=== PATIENT | female | born 1990 | race Caucasian/White ===

== ENCOUNTER → 2016-12-31 | Outpatient (CLI) | payer BC | END | disposition home or self-care (01) | LOC: C.PAPS 17:45 | PROVIDERS: ATTEND Physician Assistant | DX: Z01.419 Encounter for gynecological examination (general) (routine) without abnormal findings (principal) ==

== ENCOUNTER 2020-05-13 07:36 | Inpatient (IN) ==
[2020-05-13] MEDS ORDERED: OXYTOCIN 30 UNITS/500 ML BAG IV PRN ×2 (07:48→07:52)
[2020-05-13 08:12] LABS: Hemoglobin 11.2 g/dL (12.0-16.0); Mean Corpuscular Hemoglobin 29.2 pg (25-34); Mean Corpuscular Volume 85.9 fL (80-100); Mean Platelet Volume 9.7 fL (7.4-10.4); Platelet Count 190 K/uL (130-400); RDW Coefficient of Variation 13.6 % (11.5-14.5); RDW Standard Deviation 42.2 fL (36.4-46.3); Red Blood Count 3.84 M/uL (4.2-5.4); White Blood Count 10.13 K/uL (4.8-10.8)
[2020-05-13 08:13] LABS: Mean Corpuscular Hgb Conc 33.9 g/dL (32-36)
--- NOTE | 2020-05-13 08:14 | History & Physical Report ---
Date of Service May 13, 2020 Assessment & Plan (1) Encounter for induction of labor: Nara is a 29 y/o female currently at 41-2/7 WGA with an CARLENE 05/04/20 as determined by US #1 who is here for induction of labor in the setting of post-dates. Her has been uncomplicated. - Will proceed with induction of labor -- begin Pitocin augmentation protocol - Expect - Patient not requesting epidural at this time, but has been counselled that she can request this while here prior to delivery Blood Type: A+ GBS: negative Rubella: immune History of Present Illness Primary Care Provider: Selwyn Nash DO Nara is a 29 y/o female currently at 41-2/7 WGA with an CARLENE 05/04/20 as determined by US #1 who is here for induction of labor in the setting of post-dates. Her has been uncomplicated. Denies contractions; good movement; no fluid loss; no bloody show External FHT and external uterine monitors used; Category I tracing; +FHT variability. Had regular appointments with OB. Labs: (09/24/19) Blood type: A+ Antibody screen: neg H.2 Hct: 35.4 WBC: 7.2 Plt: 191 Rubella: immune VDRL/RPR: NR Gonorrhea: neg Chlamydia: neg HIV: neg HbSAg: neg GBS: neg Allergies Allergy/AdvReac Type Severity Reaction Status Date / Time Penicillins Allergy Hives Verified 05/13/20 08:41 Home Medications Home Medications Medication Instructions Recorded Confirmed Type prenat.vits,africa,ydo-mflq-sngjd 1 tab PO DAILY 09/23/19 05/13/20 History Patient History Social History (Updated 09/23/19 @ 13:11 by Ankita Omalley) Smoking Status: Never smoker Hx Alcohol Use: No Hx Substance Use: No Preferred Language: [place] Citizen Communication Ability: Effective Beliefs That Will Affect Care: None marital status: marital status details: Prem Blairyenni (33) [phone] Current Living Situation: Spouse Current Living Situation Comment: lives with spouse, no pets current occupational status: employed 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 No acute distress. Cardiac: Regular rate and rhythm, no murmurs/rubs/gallops. Respiratory: Clear to auscultation bilaterally a/p, no wheezes/rales/rhonchi. No increased work of breathing. Symmetrical chest rise. No respiratory distress. Pelvic: Dilation 1.5 cm; Effacement 70%; Station -[address] Banegas Lower Extremities: No lower extremity edema or swelling. No deep calf pain. Gabriel's negative bilaterally Results & Data Vital Signs (Past 12 Hours) Vital Signs Pulse BP 05/13/20 07:48 86 120/71 Code Status & VTE Plan VTE Prophylaxis Plan VTE Prophylaxis will be ordered: No Supervising Physician Co-Signing Physician Notes Resident Physician Supervision Note: I interviewed and examined the patient. Discussed with Dr. Barrera and agree with findings and plan as documented in the note. Any exceptions or clarifications are listed here: with iup at 41+ who presents for postdates induction. uncomplicated. gbs negative. cx--1-2/70/-2, fetus category one. toco--irregular. Plan pitocin induction and then arom. epidural on request. anticipate . Documented By: Ning Banegas MD, FACOG Resident Activity Tracking Resident Involvement: Resident Care Provided Care Provided: Adult Hospital Medicine and OB Delivery
[2020-05-13] MEDS: LACTATED RINGER'S 1,000 ML IV PRN ×3 (09:04→18:54)
--- NOTE | 2020-05-13 13:06 | Labor Progress Brief Note ---
Date of Service May 13, 2020 Subjective patient noting some contractions Assessment & Plan (1) Encounter for induction of labor: Admission and Anticipated Discharge Date Admission Date: May 13, 2020 arom--clear, continue pitocin, fetus category one. anticipate . Physical Exam Constitutional: WD/WN, vitals as above Psychiatric: A+Ox3, euthymic affect Genitourinary: cx--3/75/-2 arom--slight clear toco--q3-5min efm--120s mod variability, accels to 160s, no decels Results & Data ([facility]) Vital Signs (Past 12 Hours) Vital Signs Temp Pulse Resp BP 05/13/20 12:10 75 114/71 05/13/20 11:07 36.5 C 73 20 110/70 05/13/20 10:07 77 117/65 05/13/20 09:07 83 127/70 05/13/20 08:25 36.5 C 20 05/13/20 07:48 86 120/71 Coding Level of Care Code None Diagnoses Encounter for induction of labor Z34.90
[2020-05-13] MEDS ORDERED: BUTORPHANOL TARTRATE 1 MG/ML VIAL IV ONE (16:47)
[2020-05-13] MEDS ORDERED: BUTORPHANOL TARTRATE 1 MG/ML VIAL ONE (16:49)
--- NOTE | 2020-05-13 16:49 | Labor Progress Brief Note ---
Date of Service May 13, 2020 Subjective Patient getting uncomfortable with contractions Assessment & Plan (1) Encounter for induction of labor: discussed pain management options. Patient desires trial of stadol. fetus category one. continue current management. Admission and Anticipated Discharge Date Admission Date: May 13, 2020 Physical Exam Constitutional: WD/WN, vitals as above Psychiatric: A+Ox3, euthymic affect Genitourinary: cx--3-4/100/-1 toco--q2min, pit at 19 efm--120s with mod variability, small accels, no decels Results & Data ([facility]) Vital Signs (Past 12 Hours) Vital Signs Temp Pulse Resp BP 05/13/20 16:40 78 121/72 05/13/20 15:13 72 133/78 05/13/20 14:29 36.4 C L 67 20 121/78 05/13/20 13:04 36.6 C 75 20 129/80 05/13/20 12:10 75 114/71 05/13/20 11:07 36.5 C 73 20 110/70 05/13/20 10:07 77 117/65 05/13/20 09:07 83 127/70 05/13/20 08:25 36.5 C 20 05/13/20 07:48 86 120/71 Coding Level of Care Code None Diagnoses Encounter for induction of labor Z34.90
[2020-05-13] MEDS ORDERED: BUPIVACAINE 0.25% 30 ML VIAL ONE (17:53)
[2020-05-13] MEDS ORDERED: fentaNYL citrate 100 MCG/2 ML VIAL ONE (17:53)
[2020-05-13] MEDS ORDERED: ePHEDrine sulfate 50 MG/ML AMP ONE (17:53)
[2020-05-13] MEDS ORDERED: fentaNYL 2MCG/ML ROPIV 1.25MG/ML 100 ML BAG EPI ONE (17:54)
[2020-05-13] MEDS ORDERED: NALOXONE HCL 1 MG in SODIUM CHLORIDE 0.9% 1000ML 1,000 ML IV PRN (18:13)
[2020-05-13] MEDS ORDERED: DiphenhydrAMINE HCL 50 MG/ML VIAL IV PRN (18:13)
[2020-05-13] MEDS ORDERED: fentaNYL 2MCG/ML ROPIV 1.25MG/ML 100 ML BAG EPI PRN (18:13)
[2020-05-13] MEDS ORDERED: ePHEDrine sulfate 50 MG/ML AMP IV PRN (18:13)
[2020-05-13] MEDS ORDERED: NALOXONE HCL 0.4 MG/1 ML VIAL/CARP IV PRN (18:13)
[2020-05-13] MEDS ORDERED: ONDANSETRON INJ 2 MG/ML 2 ML VIAL IV PRN (18:13)
--- NOTE | 2020-05-13 18:17 | Anesthesiology Consultation ---
Date of Service May 13, 2020 Assessment & Plan (1) Encounter for pre-operative examination: Chart Review Chart Review: Patient NOT seen in Pre Admission Testing and Acceptable Risk for Labor Epidural Consults Requested none History Height/Weight Height: 5 ft 8 in Weight: 80.739 kg Allergies Allergy/AdvReac Type Severity Reaction Status Date / Time Penicillins Allergy Hives Verified 05/13/20 08:41 Medications Home Medications Medication Instructions Recorded Confirmed Last Taken prenat.vits,africa,emx-imit-ksqyk 1 tab PO DAILY 09/23/19 05/13/20 05/13/20 07:00 Active Medications Generic Name Dose Route Start Last Admin Trade Name Freq PRN Reason Stop Dose Admin Lactated Ringer's 1,000 mls @ 125 mls/hr 05/13/20 07:48 05/13/20 17:50 Lr IV 05/15/20 07:47 999 mls/hr .Q8H PRN Infusion L&D Protocol Protocol Oxytocin 30 units in 500 mls @ 9 mls/hr 05/13/20 07:52 05/13/20 18:00 Pitocin IV 05/15/20 07:51 0.54 units/hr .Q24H PRN 9 mls/hr Labor Induction/Augmentation Titration Protocol 0.54 UNITS/HR Past Medical History Medical History History of chicken pox Exercise / Class Metabolic Activity II 4-5 Yardwork/Stairs/Walk up hill Past Family History Family History Grandmother (Paternal) Breast cancer Past Surgical History Surgical History History of lingual frenotomy Past Anesthesia History No Hx of Anesthesia Complications and No Family Hx of Anesthesia Complications History of PONV No Hx of PONV and No Hx of Motion Sickness Social History Smoking Status: Never smoker Do You Dip or Chew Tobacco: No Hx Alcohol Use: No Hx Substance Use: No Physical Exam Vital Signs Last Vital Signs Temp 36.6 C 05/13/20 17:00 Pulse 80 05/13/20 18:40 Resp 24 05/13/20 17:00 BP 129/75 05/13/20 18:37 Pulse Ox 100 05/13/20 18:40 Testing Laboratory Results 05/13/20 07:58
--- NOTE | 2020-05-13 20:14 | Labor Progress Brief Note ---
Date of Service May 13, 2020 Subjective comfortable with epidural Assessment & Plan (1) Encounter for induction of labor: Admission and Anticipated Discharge Date Admission Date: May 13, 2020 Continue current management. fetus category one with early with contractions. allow to labor down. anticipate . Physical Exam Constitutional: WD/WN, vitals as above Psychiatric: A+Ox3, euthymic affect Genitourinary: cx--rim/c/0 toco--q2-4min, pit at 9 efm--120s with mod variability, early with contractions Results & Data ([facility]) Vital Signs (Past 12 Hours) Vital Signs Temp Pulse Resp BP Pulse Ox 05/13/20 20:10 90 100 05/13/20 20:05 81 118/76 100 05/13/20 20:00 92 H 100 05/13/20 19:55 99 H 100 05/13/20 19:50 36.5 C 85 18 100 05/13/20 19:45 79 100 05/13/20 19:44 82 122/77 05/13/20 19:40 81 100 05/13/20 19:38 88 89 L 05/13/20 19:35 36.5 C 83 20 100 05/13/20 19:33 87 92 05/13/20 19:30 102 H 106/67 100 05/13/20 19:25 85 100 05/13/20 19:24 71 124/71 05/13/20 19:20 84 99 05/13/20 19:18 82 110/63 05/13/20 19:15 82 100 05/13/20 19:14 73 107/58 L 05/13/20 19:10 71 100 05/13/20 19:05 79 99 05/13/20 19:00 83 100 05/13/20 18:57 75 172/69 H 05/13/20 18:55 77 100 05/13/20 18:54 82 125/73 05/13/20 18:52 75 123/70 05/13/20 18:50 75 120/62 100 05/13/20 18:49 74 137/60 05/13/20 18:46 79 119/63 05/13/20 18:45 71 124/65 100 05/13/20 18:42 66 125/67 05/13/20 18:40 80 100 05/13/20 18:37 74 129/75 05/13/20 18:35 86 100 05/13/20 18:34 74 137/78 05/13/20 18:31 73 136/77 05/13/20 18:30 87 100 05/13/20 18:25 76 100 05/13/20 18:20 69 100 05/13/20 18:15 75 100 05/13/20 18:10 76 99 05/13/20 18:05 74 98 05/13/20 17:59 69 134/61 05/13/20 17:39 71 127/85 05/13/20 17:00 36.6 C 24 05/13/20 16:40 78 121/72 05/13/20 15:13 72 133/78 05/13/20 14:29 36.4 C L 67 20 121/78 05/13/20 13:04 36.6 C 75 20 129/80 05/13/20 12:10 75 114/71 05/13/20 11:07 36.5 C 73 20 110/70 05/13/20 10:07 77 117/65 05/13/20 09:07 83 127/70 05/13/20 08:25 36.5 C 20 Coding Level of Care Code None Diagnoses Encounter for induction of labor Z34.90
--- NOTE | 2020-05-13 22:40 | Labor Progress Brief Note ---
Date of Service May 13, 2020 Subjective Pushing with excellent effort Assessment & Plan (1) Encounter for induction of labor: Admission and Anticipated Discharge Date Admission Date: May 13, 2020 good progress, fetus tolerating pushing. anticipate . Physical Exam Constitutional: WD/WN, vitals as above Psychiatric: A+Ox3, euthymic affect Genitourinary: c/c/+2 with push toco--q2-4min, pit at 10 efm--150s wtih mod variability, variables with pushing. Results & Data ([facility]) Vital Signs (Past 12 Hours) Vital Signs Temp Pulse Resp BP Pulse Ox 05/13/20 22:35 109 H 95 05/13/20 22:33 109 H 118/65 05/13/20 22:31 111 H 94 05/13/20 22:30 111 H 96 05/13/20 22:25 128 H 96 05/13/20 22:20 121 H 96 05/13/20 22:18 100 H 121/61 05/13/20 22:15 115 H 96 05/13/20 22:10 136 H 97 05/13/20 22:05 133 H 97 05/13/20 22:03 110 H 117/62 05/13/20 22:00 122 H 97 05/13/20 21:55 134 H 98 05/13/20 21:50 104 H 95 05/13/20 21:49 76 128/72 05/13/20 21:45 96 H 99 05/13/20 21:40 102 H 100 05/13/20 21:35 98 H 100 05/13/20 21:33 94 H 109/66 05/13/20 21:30 92 H 97 05/13/20 21:25 90 98 05/13/20 21:20 90 98 05/13/20 21:19 81 108/71 05/13/20 21:15 83 97 05/13/20 21:10 91 H 96 05/13/20 21:05 80 117/72 99 05/13/20 21:00 88 18 98 05/13/20 20:55 78 100 05/13/20 20:50 79 98 05/13/20 20:48 78 118/66 05/13/20 20:45 84 98 05/13/20 20:40 81 98 05/13/20 20:35 89 99 05/13/20 20:34 81 120/70 05/13/20 20:30 80 100 05/13/20 20:25 84 100 05/13/20 20:20 92 H 100 05/13/20 20:19 82 122/73 05/13/20 20:15 36.6 C 105 H 18 100 05/13/20 20:10 90 100 05/13/20 20:05 81 118/76 100 05/13/20 20:00 92 H 100 05/13/20 19:55 99 H 100 05/13/20 19:50 36.5 C 85 18 100 05/13/20 19:45 79 100 05/13/20 19:44 82 122/77 05/13/20 19:40 81 100 05/13/20 19:38 88 89 L 05/13/20 19:35 36.5 C 83 20 100 05/13/20 19:33 87 92 05/13/20 19:30 102 H 106/67 100 05/13/20 19:25 85 100 05/13/20 19:24 71 124/71 05/13/20 19:20 84 99 05/13/20 19:18 82 110/63 05/13/20 19:15 82 100 05/13/20 19:14 73 107/58 L 05/13/20 19:10 71 100 05/13/20 19:05 79 99 05/13/20 19:00 83 100 05/13/20 18:57 75 172/69 H 05/13/20 18:55 77 100 05/13/20 18:54 82 125/73 05/13/20 18:52 75 123/70 05/13/20 18:50 75 120/62 100 05/13/20 18:49 74 137/60 05/13/20 18:46 79 119/63 05/13/20 18:45 71 124/65 100 05/13/20 18:42 66 125/67 05/13/20 18:40 80 100 05/13/20 18:37 74 129/75 05/13/20 18:35 86 100 05/13/20 18:34 74 137/78 05/13/20 18:31 73 136/77 05/13/20 18:30 87 100 05/13/20 18:25 76 100 05/13/20 18:20 69 100 05/13/20 18:15 75 100 05/13/20 18:10 76 99 05/13/20 18:05 74 98 05/13/20 17:59 69 134/61 05/13/20 17:39 71 127/85 05/13/20 17:00 36.6 C 24 05/13/20 16:40 78 121/72 05/13/20 15:13 72 133/78 05/13/20 14:29 36.4 C L 67 20 121/78 05/13/20 13:04 36.6 C 75 20 129/80 05/13/20 12:10 75 114/71 05/13/20 11:07 36.5 C 73 20 110/70 Coding Level of Care Code None Diagnoses Encounter for induction of labor Z34.90
[2020-05-13] MEDS ORDERED: ACETAMINOPHEN 325 MG TAB PO PRN (23:47)
[2020-05-13] MEDS ORDERED: OXYCODONE/ACETAMINOPHEN 5mg/325mg TAB PO PRN (23:47)
--- NOTE | 2020-05-13 23:50 | Delivery Summary ---
Vaginal Delivery Summary Date of Service May 13, 2020 Vaginal Delivery Summary Pre-operative Diagnosis: at 41+weeks postdates induction Post-operative Diagnosis: same Procedure: pitocin induction arom epidural second degree laceration and left labial laceration and repair EBL: 400cc Anesthesia: epidural Procedure: The patient pushed for about 1 hr and 30 min to deliver a viable female infant in iqra position. The nose and mouth were bulb suctioned on the perineum a loose nuchal cord x 1 was easily reduced and the rest of the infant was then delivered without difficulty. The baby was vigorous. The nose and mouth were again bulb suctioned and the infant was placed in the maternal abdomen for drying and attention. Cord was clamped and cut at one minute of life. Cord blood and segment obtained. Placenta delivered spontaneous, intact with a three vessel cord. Cervix/sulci/rectum were intact. A second degree perineal laceration and a small left labial laceration were repaired in the normal standard fashion. Hemostasis obtained with dilute pitocin and fundal massage. Apgars were 8/9. Mother and baby doing well at the end of the delivery. [facility] Vaginal Delivery Charge Vaginal Delivery Codes: 66441 global code for the antepartum, delivery, and post-
[2020-05-14] MEDS ORDERED: HYDROCORTISONE ACETATE 25 MG SUPP PR PRN (01:00)
[2020-05-14] MEDS ORDERED: SUPERCREAM 0.870% 15 GM JAR EXT PRN (01:00)
[2020-05-14] MEDS ORDERED: BENZOCAINE 20% AER SPR 82.5 GM CAN EXT PRN (01:00)
[2020-05-14] MEDS ORDERED: OXYTOCIN 30 UNITS/500 ML BAG IV PRN (01:00)
[2020-05-14] MEDS ORDERED: DIPHTHERIA/TETANUS/PERTUSSIS 0.5 ML SYR/VIAL IM ONE (01:00)
[2020-05-14] MEDS ORDERED: bisacodyL 10 MG SUPP PR PRN (01:00)
--- NOTE | 2020-05-14 05:06 | Obstetrical Progress Note ---
Date of Service <Beto Barrera MD - Last Filed: 05/14/20 06:25> May 14, 2020 Assessment & Plan <Beto Barrera MD - Last Filed: 05/14/20 06:25> (1) (spontaneous vaginal delivery): - Feels well today. Eating well, voiding well, beginning to ambulate - Pain well controlled with Percocet, ibuprofen 600mg Q4H PRN. - Routine PPD care -- progressive OOB and ambulation as tolerated Subjective <Beto Barrera MD - Last Filed: 05/14/20 06:25> Nara is a 29 y/o female who is now PPD #1 following IOL (in setting of post dates) and subsequent at 41-2/7 weeks. Reports feeling well overall this morning. Endorses abdominal cramping that is well managed on analgesics. Voiding without difficulty. Tolerating meals overnight and has ambulated to the bathroom without difficulty. Passing gas but no bowel movements yet. Some persistent lochia with some improvement this morning. Breast feeding. Review of Systems Denies fever, chills, sweats Denies shortness of breath, difficulty breathing, chest pain, palpitations, chest pressure. Denies breast pain. Denies dysuria. Denies headache or changes in vision. Physical Exam <Beto Barrera MD - Last Filed: 05/14/20 06:25> General: Alert, oriented. No acute distress. Cardiac: Regular rate and rhythm, no murmurs/rubs/gallops. Respiratory: Clear to auscultation bilaterally a/p, no wheezes/rales/rhonchi. No increased work of breathing. Symmetrical chest rise. No respiratory distress. Abdomen: Soft, nontender, nondistended. Bowel sounds present. Uterus: Uterine fundus firm, palpable at the level of the umbilicus. Lower Extremities: No lower extremity edema or swelling. No deep calf pain. Gabriel's negative bilaterally. Results & Data <Beto Barrera MD - Last Filed: 05/14/20 06:25> Vital Signs (Past 12 Hours) Vital Signs Temp Pulse Pulse Resp BP BP Pulse Ox 05/14/20 04:05 36.4 C L 77 16 120/75 98 05/14/20 02:13 36.5 C 84 16 127/76 98 05/14/20 01:45 99 H 18 113/62 05/14/20 01:30 95 H 110/61 05/14/20 01:15 80 18 116/66 05/14/20 01:00 90 124/70 05/14/20 00:46 84 117/62 05/14/20 00:45 36.9 C 16 05/14/20 00:30 91 H 18 126/73 05/14/20 00:15 87 18 113/68 05/14/20 00:00 36.9 C 82 18 125/75 05/13/20 23:45 91 H 128/74 98 05/13/20 23:40 93 H 99 05/13/20 23:35 85 98 05/13/20 23:34 89 125/74 05/13/20 23:30 87 98 05/13/20 23:25 94 H 98 05/13/20 23:20 109 H 97 05/13/20 23:19 93 H 111/52 L 05/13/20 23:15 97 H 98 05/13/20 23:10 97 H 96 05/13/20 23:05 108 H 97 05/13/20 23:04 94 H 138/69 05/13/20 23:00 98 H 96 05/13/20 22:55 105 H 96 05/13/20 22:50 115 H 96 05/13/20 22:49 121 H 127/72 05/13/20 22:45 106 H 96 05/13/20 22:40 111 H 96 05/13/20 22:35 109 H 95 05/13/20 22:33 109 H 118/65 05/13/20 22:31 111 H 94 05/13/20 22:30 111 H 96 05/13/20 22:25 128 H 96 05/13/20 22:20 121 H 96 05/13/20 22:18 100 H 121/61 05/13/20 22:17 36.6 C 05/13/20 22:15 115 H 96 05/13/20 22:10 136 H 97 05/13/20 22:05 133 H 97 05/13/20 22:03 110 H 117/62 05/13/20 22:00 122 H 97 05/13/20 21:55 134 H 98 05/13/20 21:50 104 H 95 05/13/20 21:49 76 128/72 05/13/20 21:45 96 H 99 05/13/20 21:40 102 H 100 05/13/20 21:35 98 H 100 05/13/20 21:33 94 H 109/66 05/13/20 21:30 92 H 97 05/13/20 21:25 90 98 05/13/20 21:20 90 98 05/13/20 21:19 81 108/71 05/13/20 21:15 83 97 05/13/20 21:10 91 H 96 05/13/20 21:05 80 117/72 99 05/13/20 21:00 88 18 98 05/13/20 20:55 78 100 05/13/20 20:50 79 98 05/13/20 20:48 78 118/66 05/13/20 20:45 84 98 05/13/20 20:40 81 98 05/13/20 20:35 89 99 05/13/20 20:34 81 120/70 05/13/20 20:30 80 100 05/13/20 20:25 84 100 05/13/20 20:20 92 H 100 05/13/20 20:19 82 122/73 05/13/20 20:15 36.6 C 105 H 18 100 05/13/20 20:10 90 100 05/13/20 20:05 81 118/76 100 05/13/20 20:00 92 H 100 05/13/20 19:55 99 H 100 05/13/20 19:50 36.5 C 85 18 100 05/13/20 19:45 79 100 05/13/20 19:44 82 122/77 05/13/20 19:40 81 100 05/13/20 19:38 88 89 L 05/13/20 19:35 36.5 C 83 20 100 05/13/20 19:33 87 92 05/13/20 19:30 102 H 106/67 100 05/13/20 19:25 85 100 05/13/20 19:24 71 124/71 05/13/20 19:20 84 99 05/13/20 19:18 82 110/63 05/13/20 19:15 82 100 05/13/20 19:14 73 107/58 L 05/13/20 19:10 71 100 05/13/20 19:05 79 99 05/13/20 19:00 83 100 05/13/20 18:57 75 172/69 H 05/13/20 18:55 77 100 05/13/20 18:54 82 125/73 05/13/20 18:52 75 123/70 05/13/20 18:50 75 120/62 100 05/13/20 18:49 74 137/60 05/13/20 18:46 79 119/63 05/13/20 18:45 71 124/65 100 05/13/20 18:42 66 125/67 05/13/20 18:40 80 100 05/13/20 18:37 74 129/75 05/13/20 18:35 86 100 05/13/20 18:34 74 137/78 05/13/20 18:31 73 136/77 05/13/20 18:30 87 100 05/13/20 18:25 76 100 05/13/20 18:20 69 100 05/13/20 18:15 75 100 05/13/20 18:10 76 99 05/13/20 18:05 74 98 05/13/20 17:59 69 134/61 05/13/20 17:39 71 127/85 <Ning Banegas MD, FACOG - Last Filed: 05/14/20 07:30> Co-Signing Physician Notes Resident Physician Supervision Note: I interviewed and examined the patient. Discussed with Dr. Barrera and agree with findings and plan as documented in the note. Any exceptions or clarifications are listed here: Doing well. Routine care. Documented By: Ning Banegas MD, FACOG Resident Activity Tracking <Beto Barrera MD - Last Filed: 05/14/20 06:25> Resident Involvement: Resident Care Provided Care Provided: Adult Hospital Medicine and OB Delivery
[2020-05-14] MEDS: IBUPROFEN 600 MG TAB PO PRN ×4 (06:30→22:41)
--- NOTE | 2020-05-14 06:58 | Anesthesia Procedure Note ---
Date of Service May 14, 2020 Anesthesia Post Epidural Note Vital Signs Vital Signs: Temp Pulse Resp BP Pulse Ox 36.4 C L 77 16 120/75 98 05/14/20 04:05 05/14/20 04:05 05/14/20 04:05 05/14/20 04:05 05/14/20 04:05 Pain Intensity Lower Pelvic: Pain Intensity: 1 Notes Mental Status: alert / awake / arousable and participated in evaluation Patient Amnestic to Procedure: No Nausea / Vomiting: adequately controlled Pain: adequately controlled Airway Patency, RR, SpO2: stable & adequate BP & HR: stable & adequate Hydration State: stable & adequate Neuraxial Anesthesia: was administered and sensory block is resolving Anesthetic Complications: no major complications apparent and Pt Satisfied with anesthetic care Epidural: Removed without complications and With tip intact
[2020-05-14 07:25] LABS: Hematocrit (blood only) 32.5 % (37-47); Hemoglobin 11.3 g/dL (12.0-16.0)
[2020-05-14] MEDS: PRENATAL VITAMIN 1 TAB PO SCH (07:41)
[2020-05-14] MEDS: DOCUSATE SODIUM 100 MG CAP PO SCH ×2 (07:41→20:35)
[2020-05-14] MEDS ORDERED: bisacodyL 5 MG TABEC PO SCH (20:00)
[2020-05-14 20:07] VITALS: O2SAT 98
--- NOTE | 2020-05-15 07:32 | Obstetrical Progress Note ---
Date of Service May 15, 2020 Assessment & Plan (1) (spontaneous vaginal delivery): - doing well - desires d/c - instructions given - f/u in 6 weeks Subjective Ambulation: ambulating normally Diet Tolerance:: regular diet Feeding Type:: breast feeding Physical Exam Constitutional WD/WN, vitals as above Gastrointestinal (Abdomen) Fundus firm below umbilicus Musculoskeletal No deep calf tenderness Results & Data ([facility]) Vital Signs (Past 12 Hours) Vital Signs Temp Pulse Resp BP Pulse Ox 05/14/20 23:00 98.6 F 66 18 127/82 98 05/14/20 19:45 98.6 F 78 18 129/84 98
[2020-05-15] MEDS: PRENATAL VITAMIN 1 TAB PO SCH (07:36)
[2020-05-15] MEDS: IBUPROFEN 600 MG TAB PO PRN (07:36)
[2020-05-15] MEDS: DOCUSATE SODIUM 100 MG CAP PO SCH (07:36)
[2020-05-15 09:12] VITALS: BP 106/72; TEMP 98.1
[2020-05-15 10:49] VITALS: PULSE 66
== END 2020-05-15 12:55 | disposition home or self-care (01) | DRG 807 ==
LOC: 4S1 07:36 → 4S2 05-14 02:00

== ENCOUNTER 2022-07-26 20:13 | Inpatient (IN) ==
[2022-07-26] MEDS ORDERED: OXYTOCIN 30 UNITS/500 ML BAG IV PRN (20:44)
[2022-07-26] MEDS ORDERED: LIDOCAINE 1% LOCAL 20 ML VIAL INFIL PRN (20:44)
[2022-07-26] MEDS ORDERED: ePHEDrine sulfate 50 MG/ML AMP ONE (20:49)
[2022-07-26] MEDS ORDERED: fentaNYL citrate 100 MCG/2 ML VIAL ONE (20:50)
[2022-07-26] MEDS ORDERED: BUPIVACAINE 0.25% 30 ML VIAL ONE (20:50)
[2022-07-26] MEDS ORDERED: fentaNYL 2MCG/ML ROPIVACAINE 1.25MG/ML 100 ML BAG EPI ONE (20:50)
[2022-07-26] MEDS ORDERED: SODIUM CHLORIDE 0.9% INJ 10 ML VIAL ONE (20:50)
[2022-07-26] MEDS ORDERED: LIDOCAINE 2%/EPINEPHRINE 1:200,000 20 ML SDV ONE (20:50)
[2022-07-26] MEDS: LACTATED RINGER'S 1,000 ML IV PRN ×2 (20:54→21:51)
[2022-07-26 21:01] LABS: Hematocrit (blood only) 33.1 % (34.1-44.9); Hemoglobin 11.8 g/dl (12.0-16.0); Mean Corpuscular Hemoglobin 31.1 pg (25.0-34.0); Mean Corpuscular Hgb Conc 35.6 g/dL (32.0-36.0); Mean Corpuscular Volume 87.1 fL (80.0-100.0); Mean Platelet Volume 10.2 fL (9.4-12.3); Platelet Count 165 K/uL (130-400); RDW Coefficient of Variation 13.1 % (11.5-14.5); RDW Standard Deviation 41.4 fL (36.4-46.3); White Blood Count 17.12 K/ul (4.8-10.8)
--- NOTE | 2022-07-26 21:08 | History & Physical Report ---
Date of Service July 26, 2022 Assessment & Plan (1) Encounter for supervision of normal in multigravida: Plan: Admit to L&D. EFM/toco, labs, IV. OK for epidural. Anticipate . History of Present Illness Chief Complaint: labor Primary Care Provider: Selwyn Nash, 31yo @ 39 4/7, presents with worsening contractions. No leaking fluid, no vaginal bleeding. + movement. Allergies Allergy/AdvReac Type Severity Reaction Status Date / Time Penicillins Allergy Hives Verified 07/25/22 15:27 Home Medications Medication Instructions Recorded Confirmed Type prenat.vits,africa,uxe-vjml-nuvpb 1 tab PO DAILY 09/23/19 07/26/22 History Patient History Medical History Encounter for preconception consultation Encounter for routine gynecological examination History of chicken pox Oral contraceptive pill surveillance Surgical History History of lingual frenotomy Family History Grandmother (Paternal) Breast cancer Mother Breast cancer Denies family history of Ovarian cancer Colorectal cancer Social History (Updated 12/18/21 @ 15:08 by Ankita Omalley) Smoking Status: Never smoker Hx Alcohol Use: No Hx Substance Use: No Preferred Language: Romanian Communication Ability: Effective 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 Beliefs That Will Affect Care: None marital status: marital status details: Prem Harding (34) [phone] Current Living Situation: Spouse and Family Current Living Situation Comment: lives with spouse, daughter current occupational status: employed current occupation: [employer] teacher Other Information That Helps Us Care for You: No Feels Safe at Home: Yes Safety Concerns: Feels Safe At This Time Assistive Devices: None Review of Systems All systems reviewed & are unremarkable except as noted in HPI & below Physical Exam Physical Exam: FHT Cat 1 [place] Q 3-4 SVE 4-5/100/0 per RN exam on arrival, bulging membranes Constitutional: WD/WN, vitals as above Respiratory: normal respiratory effort, lungs clear to auscultation no respiratory distress Cardiovascular: Rate/Rhythm: regular rate and regular rhythm Gastrointestinal (Abdomen): Inspection/Auscultation: abdomen normal to inspection Percussion/Palpation: abdomen soft; abdomen nontender Gravid. No s/s chorio or abruption. Skin: no rashes, warm and dry Psychiatric: A+Ox3, euthymic affect Results & Data ([facility]) Vital Signs (Past 12 Hours) Vital Signs Temp Pulse Resp BP 07/26/22 20:29 36.4 C L 85 18 130/76 07/26/22 20:26 36.4 C L 85 18 130/76 Coding Level of Care Code None Diagnoses Encounter for supervision of normal in multigravida Z34.80
[2022-07-26] MEDS ORDERED: ONDANSETRON INJ 2 MG/ML 2 ML VIAL IV PRN (21:10)
[2022-07-26] MEDS ORDERED: NALBUPHINE HCL INJ 10 MG/ML AMP IV PRN (21:10)
[2022-07-26] MEDS ORDERED: diphenhydrAMINE 50 MG/ML VIAL IV PRN (21:10)
[2022-07-26] MEDS ORDERED: NALOXONE HCL 0.4 MG/1 ML VIAL/CARP IV PRN (21:10)
[2022-07-26] MEDS ORDERED: fentaNYL 2MCG/ML ROPIVACAINE 1.25MG/ML 100 ML BAG EPI PRN (21:10)
[2022-07-26] MEDS ORDERED: ePHEDrine sulfate 50 MG/ML AMP IV PRN (21:10)
[2022-07-26] MEDS ORDERED: NALOXONE HCL 1 MG in SODIUM CHLORIDE 0.9% 1000ML 1,000 ML IV PRN (21:10)
--- NOTE | 2022-07-26 21:12 | Anesthesiology Consultation ---
Date of Service July 26, 2022 Assessment & Plan (1) Encounter for pre-operative examination: Chart Review Chart Review: Patient NOT seen in Pre Admission Testing and Acceptable Risk for Labor Epidural Consults Requested none History Height/Weight Height: 5 ft 9 in Weight: 78.925 kg Allergies Allergy/AdvReac Type Severity Reaction Status Date / Time Penicillins Allergy Hives Verified 07/25/22 15:27 Medications Home Medications Medication Instructions Recorded Confirmed Last Taken prenat.vits,[place],yhe-rtzj-ohjuw 1 tab PO DAILY 09/23/19 07/26/22 07/25/22 Active Medications Generic Name Dose Route Start Last Admin Trade Name Freq PRN Reason Stop Dose Admin Lactated Ringer's 1,000 mls @ 125 mls/hr 07/26/22 20:44 07/26/22 20:54 Lr IV 07/28/22 20:43 999 mls/hr .Q8H PRN Administration L&D Protocol Protocol Past Medical History Medical History Encounter for preconception consultation Encounter for routine gynecological examination History of chicken pox Oral contraceptive pill surveillance Exercise / Class Metabolic Activity II 4-5 Yardwork/Stairs/Walk up hill Past Family History Family History Grandmother (Paternal) Breast cancer Mother Breast cancer Denies family history of Ovarian cancer Colorectal cancer Past Surgical History Surgical History History of lingual frenotomy Past Anesthesia History No Hx of Anesthesia Complications and No Family Hx of Anesthesia Complications History of PONV No Hx of PONV and No Hx of Motion Sickness Social History Smoking Status: Never smoker Hx Alcohol Use: No Hx Substance Use: No Physical Exam Vital Signs Last Vital Signs Temp 36.4 C L 07/26/22 20:29 Pulse 90 07/26/22 21:29 Resp 18 07/26/22 20:29 BP 105/64 07/26/22 21:29 Pulse Ox 94 07/26/22 21:29 Testing Laboratory Results 07/26/22 20:54
--- NOTE | 2022-07-27 02:21 | Labor Progress Brief Note ---
Date of Service July 27, 2022 Subjective Comfortable with epidural. FHT Cat 1 [place] Q 2 SVE 8/100/0 AROM clear fluid. Anticipate . Assessment & Plan Admission and Anticipated Discharge Date Admission Date: July 26, 2022 Results & Data ([facility]) Vital Signs (Past 12 Hours) Vital Signs Temp Pulse Resp BP Pulse Ox 07/26/22 20:29 36.4 C L 85 18 130/76 07/27/22 02:11 91 H 94 07/27/22 02:08 90 101/59 L 94 07/27/22 02:03 89 95 07/27/22 02:00 101 H 94 07/27/22 01:58 85 95 07/27/22 01:53 84 94 07/27/22 01:54 86 94 07/27/22 01:52 81 107/58 L 07/27/22 01:48 95 07/27/22 01:48 82 07/27/22 01:48 84 94 07/27/22 01:43 83 95 07/27/22 01:42 86 94 07/27/22 01:38 88 95 07/27/22 01:36 85 113/59 L 07/27/22 01:35 81 94 07/27/22 01:33 84 94 07/27/22 01:29 82 94 07/27/22 01:28 79 96 07/27/22 01:23 95 07/27/22 01:23 85 07/27/22 01:23 88 113/58 L 94 07/27/22 01:18 78 95 07/27/22 01:16 80 94 07/27/22 01:13 99 H 95 07/27/22 01:09 89 94 07/27/22 01:08 85 95 07/27/22 01:06 85 97/54 L 07/27/22 00:15 37.0 C 07/27/22 00:15 36.4 C L 07/27/22 01:03 89 94 07/27/22 01:01 86 94 07/27/22 00:58 85 96 07/27/22 00:53 73 88/53 L 94 07/27/22 00:52 79 94 07/27/22 00:48 78 94 07/27/22 00:43 82 94 07/27/22 00:44 79 94 07/27/22 00:38 81 95 07/27/22 00:39 81 94 07/27/22 00:36 85 90/52 L 07/27/22 00:33 91 H 95 07/27/22 00:31 88 94 07/27/22 00:28 92 H 95 07/27/22 00:25 85 94 07/27/22 00:23 84 100/52 L 95 07/27/22 00:18 88 95 07/27/22 00:13 94 07/27/22 00:13 89 07/27/22 00:13 79 94 07/27/22 00:08 85 94 07/27/22 00:07 83 90/53 L 07/27/22 00:03 86 94 07/26/22 23:58 88 94 07/26/22 23:53 85 94/51 L 94 07/26/22 23:50 84 94 07/26/22 23:48 80 94 07/26/22 23:43 78 95 07/26/22 23:44 80 94 07/26/22 23:38 78 95 07/26/22 23:36 79 92/54 L 07/26/22 23:33 79 96 07/26/22 23:28 89 94 07/26/22 23:23 84 94 07/26/22 23:24 85 94 07/26/22 23:22 79 89/52 L 07/26/22 23:18 84 94 07/26/22 23:13 81 94 07/26/22 23:08 94 07/26/22 23:08 87 07/26/22 23:08 84 94 07/26/22 23:07 83 98/56 L 07/26/22 23:03 88 95 07/26/22 23:02 90 94 07/26/22 22:58 88 95 07/26/22 22:53 89 95 07/26/22 22:52 85 93/52 L 94 07/26/22 22:48 84 97 07/26/22 22:45 85 94 07/26/22 22:43 87 96 07/26/22 22:39 90 94 07/26/22 22:38 92 H 102/55 L 96 07/26/22 22:33 97 H 92 07/26/22 22:31 96 H 92 07/26/22 22:28 95 H 94 07/26/22 22:23 96 H 93 2022 22:22 95 H 94 22 22:18 99 H 95 07/26/22 22:16 95 H 94 07/26/22 22:17 96 H 111/68 2022 22:15 94 H 111/67 07/26/22 22:13 97 H 114/68 93 07/26/22 22:11 97 H 112/64 94 07/26/22 22:08 99 H 95 07/26/22 22:09 100 H 116/62 2022 22:07 97 H 114/62 07/26/22 22:06 95 H 94 07/26/22 22:05 82 118/60 07/26/22 22:03 91 07/26/22 22:03 99 H 07/26/22 22:03 97 H 118/59 L 07/26/22 22:01 90 121/59 L 07/26/22 21:58 97 H 93 07/26/22 21:59 94 H 119/83 07/26/22 21:57 94 07/26/22 21:57 95 H 22 21:57 94 H 116/70 2022 21:55 96 H 112/71 22 21:53 95 22 21:53 96 H 22 21:53 91 H 113/71 22 21:51 94 2022 21:51 93 H 22 21:51 93 H 109/70 22 21:48 84 99 22 21:49 81 108/67 22 21:47 92 H 106/62 2022 21:43 93 H 96/53 L 99 2022 21:41 90 95/53 L 20/22 21:38 93 H 97 2022 21:39 86 94/52 L 2022 21:37 80 94/55 L 20/22 21:35 82 93/52 L 20/22 21:33 88 98 20/22 21:28 86 94 2022 21:29 90 105/64 94 2022 21:23 91 H 98 2022 21:22 94 H 92 07/26/22 21:18 88 99 07/26/22 21:13 93 H 93 07/26/22 21:08 89 98 07/26/22 20:26 36.4 C L 85 18 130/76 Coding Level of Care Code None
--- NOTE | 2022-07-27 03:19 | Delivery Summary ---
Vaginal Delivery Summary Date of Service July 27, 2022 Vaginal Delivery Summary and 2nd Degree LAC Vaginal Delivery Summary: Pre-delivery diagnoses: 31yo @ 39 5/, spontaneous labor Post-delivery diagnoses: same Procedure: spontaneous vaginal delivery Surgeon: Shana Meehan DO Complications: none Findings: Viable male . Apgars: 8/9 . Weight pending, please see nursery records. Estimated blood loss: 300ml Description of delivery: The patient progressed to complete with epidural anesthesia. She then began to push. She spontaneously vaginally delivered a viable from the cephalic presentation. The head delivered in JESSICA posit ion. The anterior shoulder delivered, followed by the posterior shoulder, followed by the body. No nuchal. The baby was placed on mother's abdomen and a spontaneous cry was heard. Delayed cord clamping was employed, and the cord was doubly clamped and cut. Cord blood was obtained. The placenta was delivered spontaneously intact with a 3-vessel cord. The uterus and vagina were swept of clots and debris. IV pitocin was given. The uterus became firm. The cervix, vagina, and perineum were inspected and a 2nd degree perineal laceration was noted and repaired in standard fashion with 3-0 Vicryl. Excellent hemostasis was observed. The mother and baby are recovering in stable and good condition in the room. Sponge, needle and instrument counts were correct x 2. DO [facility] Vaginal Delivery Charge Vaginal Delivery Codes: 06920 global code for the antepartum, delivery, and post- Delivery Type Details: and 2nd Degree LAC
[2022-07-27] MEDS ORDERED: BENZOCAINE 20% AER SPR 82.5 GM CAN EXT PRN (03:33)
[2022-07-27] MEDS ORDERED: bisacodyL 10 MG SUPP PR PRN (03:33)
[2022-07-27] MEDS ORDERED: OXYTOCIN 30 UNITS/500 ML BAG IV PRN (03:33)
[2022-07-27] MEDS ORDERED: MEASLES, MUMPS & RUBELLA VIRUS VIAL SQ ONE (03:33)
[2022-07-27] MEDS ORDERED: ACETAMINOPHEN 325 MG TAB PO PRN (03:33)
[2022-07-27] MEDS ORDERED: HYDROCORTISONE ACETATE 25 MG SUPP PR PRN (03:33)
[2022-07-27] MEDS ORDERED: oxyCODONE/ACETAMINOPHEN 5mg/325mg TAB PO PRN (03:33)
[2022-07-27] MEDS ORDERED: DIPHTHERIA/TETANUS/PERTUSSIS 0.5 ML SYR/VIAL IM ONE (03:33)
[2022-07-27] MEDS: IBUPROFEN 600 MG TAB PO PRN ×3 (05:45→21:23)
[2022-07-27] MEDS: PRENATAL VITAMIN 1 TAB PO SCH (08:44)
[2022-07-27] MEDS: DOCUSATE SODIUM 100 MG CAP PO SCH ×2 (08:44→21:23)
--- NOTE | 2022-07-27 10:00 | Anesthesia Procedure Note ---
Date of Service July 27, 2022 Anesthesia Post Epidural Note Vital Signs Vital Signs: Temp Pulse Resp BP Pulse Ox 36.9 C 92 H 18 108/71 95 07/27/22 03:06 07/27/22 05:36 07/27/22 05:06 07/27/22 05:36 07/27/22 02:53 Pain Intensity Lower Abdomen: Pain Intensity: 7 Notes Mental Status: alert / awake / arousable Nausea / Vomiting: adequately controlled Pain: adequately controlled Airway Patency, RR, SpO2: stable & adequate BP & HR: stable & adequate Hydration State: stable & adequate Neuraxial Anesthesia: was administered and sensory block is resolving Anesthetic Complications: no major complications apparent and Pt Satisfied with anesthetic care Epidural: Removed without complications and With tip intact
[2022-07-28] MEDS: IBUPROFEN 600 MG TAB PO PRN ×3 (05:05→12:49)
--- NOTE | 2022-07-28 07:13 | Obstetrical Progress Note ---
Date of Service <Patricia S. DO Mann - Last Filed: 07/28/22 07:59> July 28, 2022 Assessment & Plan <Patricia DarnellDO - Last Filed: 07/28/22 07:59> (1) Status post vaginal delivery: continue OOB, ambulation, diet as tolerated <Anson Lam MD - Last Filed: 07/28/22 08:27> (1) Status post vaginal delivery: Subjective <Patriciaceleste DarnellDO - Last Filed: 07/28/22 07:59> Nara is a 31 y/o female who is now PPD # 1 following spontaneous vaginal delivery at 39 5/7 weeks. Reports feeling well overall this morning. Mild abdominal cramping pain well managed on analgesics. Voiding. Tolerating meals overnight and able to ambulate some. Some persistent lochia with some improvement this morning. Breast feeding. Review of Systems Denies fever, chills, sweats Denies shortness of breath, difficulty breathing, chest pain, palpitations, chest pressure. Denies breast pain. Denies dysuria. Denies headache or changes in vision. Physical Exam <Patricia SKinza MannDO - Last Filed: 07/28/22 07:59> General: Alert, oriented. No acute distress. Cardiac: Regular rate and rhythm, no murmurs/rubs/gallops. Respiratory: Clear to auscultation bilaterally a/p, no wheezes/rales/rhonchi. No increased work of breathing. Symmetrical chest rise. No respiratory distress. Abdomen: Soft, nontender, nondistended. Bowel sounds present. Uterus: Uterine fundus firm, palpable 2 cm below umbilicus. Lower Extremities: No lower extremity edema or swelling. No deep calf pain. Gabriel's negative bilaterally. Results & Data ([facility]) <Patricia De La CruzKinza Darnell DO - Last Filed: 07/28/22 07:59> Vital Signs (Past 12 Hours) Vital Signs Temp Pulse Resp BP Pulse Ox O2 Del Method 07/28/22 00:40 36.6 C 67 16 110/72 98 Room Air 07/27/22 19:35 36.6 C 80 18 109/72 98 Room Air <Anson Lam MD - Last Filed: 07/28/22 08:27> Co-Signing Physician Notes Patient seen with resident and agree with above findings and plan. Patient doing and requesting discharge today. Patient is stable for discharge. Resident Activity Tracking <Patricia Darnell, DO - Last Filed: 07/28/22 07:59> Resident Involvement: Resident Care Provided Care Provided: OB Delivery (Post )
[2022-07-28] MEDS: PRENATAL VITAMIN 1 TAB PO SCH (09:07)
[2022-07-28] MEDS: DOCUSATE SODIUM 100 MG CAP PO SCH (09:07)
[2022-07-28] MEDS ORDERED: bisacodyL 5 MG TABEC PO SCH (20:00)
== END 2022-07-28 13:19 | disposition home or self-care (01) | DRG 807 ==
LOC: OPB 20:13 → 4S1 20:15 → 4E2 07-27 07:00
DX: O70.1 Second degree perineal laceration during delivery; Z88.0 Allergy status to penicillin; Z3A.39 39 weeks gestation of pregnancy; Z37.0 Single live birth